=== PATIENT | female | born 1985 | race American Indian/Alaskan Native ===

== ENCOUNTER 2021-12-31 08:54 | Day surgery (SDC) | payer BC ==
--- NOTE | 2021-12-30 19:38 | History and Physical Report ---
History of Present Illness Date of examination: 12/31/21 Chief complaint: 36-year-old with abdominal pain and history of documented endometriosis admitted for operative laparoscopy with fulguration of endometriotic lesions and adhesiolysis. Medications and Allergies Allergies Allergy/AdvReac Type Severity Reaction Status Date / Time No Known Allergies Allergy Unverified 12/29/21 16:43 Home Medications Medication Instructions Recorded Confirmed Last Taken Type ALPRAZolam [Xanax TAB] 0.25 mg PO BID PRN 12/29/21 12/29/21 Unknown History Dextroamphetamine/Amphetamine 20 mg PO DAILY 12/29/21 12/29/21 Unknown History [Adderall] Hyoscyamine Sulfate 0.125 mg PO DAILY PRN 12/29/21 12/29/21 Unknown History Levothyroxine Sodium [Synthroid] 137 mcg PO DAILY 12/29/21 12/29/21 Unknown History Liothyronine Sodium [Cytomel] 5 mcg PO DAILY 12/29/21 12/29/21 Unknown History Norethindrone AC-Eth Estradiol 1 tab PO DAILY 12/29/21 12/29/21 Unknown History Omeprazole Magnesium [PriLOSEC Otc] 40 mg PO QDAY 12/29/21 12/29/21 Unknown History Ondansetron (Nf) [Zofran TAB] 8 mg PO Q8HR PRN 12/29/21 12/29/21 Unknown History Active Meds: Active Medications Acetaminophen (Acetaminophen 500 Mg Tab) 1,000 mg PO PREOP ANDRESSA Stop: 12/31/21 20:00 Celecoxib (Celecoxib 200 Mg Cap) 200 mg PO PREOP NR Stop: 12/31/21 20:00 Gabapentin (Gabapentin 300 Mg Cap) 300 mg PO PREOP NR Stop: 12/31/21 20:00 Lactated Ringer's (Lactated Ringers) 1,000 mls @ 100 mls/hr IV DIRECT ANDRESSA Stop: 12/31/21 23:59 Midazolam HCl (Midazolam 2 Mg/2 Ml Inj) 2 mg IV PREOP NR Stop: 12/31/21 20:00 Scopolamine (Scopolamine Transdermal Patch 72 Hr) 1 each TD PREOP NR Stop: 12/31/21 20:00 - Physical Exam Breasts: Positive: deferred Cardiovascular: Regular rate, Normal S1 Lungs: Positive: Clear to auscultation, Normal air movement Abdomen: Positive: normal appearance, soft, normal bowel sounds Genitourinary (Female): Positive: normal external genitalia, normal perenium Vagina: Positive: normal moisture Anus/Rectum: Positive: normal perianal skin Extremities: Positive: normal Deep Tendon Reflex Grade: Normal +2 Results All other labs normal. Assessment and Plan Patient n.p.o. on-call for procedure Informed consent obtained Anesthesia notified Daron Johansen MD
[~2021-12-31 08:54] MED LIST: ACETAMINOPHEN 500 MG TAB PO SCH; CELECOXIB 200 MG CAP PO NR; GABAPENTIN 300 MG CAP PO NR; LACTATED RINGERS 1,000 ML IV SCH; MIDAZOLAM 2 MG/2 ML INJ IV NR; SCOPOLAMINE TRANSDERMAL PATCH 72 HR TD NR
[2021-12-31] MEDS ORDERED: ceFAZolin/Water 2 GM/20 ML 2 GM/20 ML SYRINGE IV ONE (09:50)
[2021-12-31] MEDS ORDERED: BUPIVACAINE/PF (0.5%) 5 MG/1 ML 30 ML VIAL INFILTRATI ONE (10:13)
[2021-12-31] MEDS ORDERED: dexAMETHasone 4 MG/ML VIAL ONE (10:23)
[2021-12-31] MEDS ORDERED: fentaNYL 100 MCG/2 ML INJ ONE (10:24)
[2021-12-31] MEDS ORDERED: BUPIVACAINE-EPINEPHRINE/PF 0.25%-1:200,000 (30 ML) VIAL INFILTRATI ONE (10:24)
--- NOTE | 2021-12-31 10:47 | Anesthesia Consultation ---
Anesthesia Consult and Med Hx Date of service: 12/31/21 - Airway Anesthetic Teeth Evaluation: Good ROM Head & Neck: Adequate Mental/Hyoid Distance: Adequate Mallampati Class: Class I Intubation Access Assessment: Good - Pre-Operative Health Status ASA Pre-Surgery Classification: ASA2 Proposed Anesthetic Plan: General Nerve Block: TAP - Pulmonary Hx Smoking: Yes (vapes) Hx Respiratory Symptoms: No - Cardiovascular System Hx Hypertension: No - Central Nervous System CVA: No Hx Psychiatric Problems: Yes (anxiety/depression) - Endocrine Hx Renal Disease: No Hx Liver Disease: No Hx Insulin Dependent Diabetes: No Hx Non-Insulin Dependent Diabetes: No Hx Hypothyroidism: Yes - Other Systems Hx Cancer: Yes (hx thyroid ca s/p surgery) Hx Obesity: Yes (BMI 35) - Additional Comments Anesthesia Medical History Comments: Hx PONV. Patient expressed desire to minimize post op opioid requirements. Consent for preop TAP block as part of multimodal pain management plan.
[2021-12-31] MEDS ORDERED: oxyCODONE /ACETAMINOPHEN 5-325MG TAB PO PRN (10:48)
[2021-12-31] MEDS ORDERED: HYDROmorphone 1 MG/1 ML INJ IV PRN (10:48)
--- NOTE | 2021-12-31 10:48 | Anesthesia Day of Surgery ---
Anesthesia Day of Surgery - Day of Surgery Patient Examined: Yes Patient H&P Reviewed: Yes Patient is NPO: Yes
[2021-12-31] MEDS ORDERED: LIDOCAINE MPF (2%) 20 MG/1 ML VIAL 5 ML ONE (11:29)
[2021-12-31] MEDS ORDERED: MIDAZOLAM 2 MG/2 ML INJ ONE (11:30)
[2021-12-31] MEDS ORDERED: propofoL 200 MG/20 ML VIAL IV ONE (11:30)
[2021-12-31] MEDS ORDERED: KETAMINE/STERILE WATER 50 MG/ML SYRINGE ONE (11:30)
[2021-12-31] MEDS ORDERED: METHYLENE BLUE 50 MG/10 ML AMP ONE (11:48)
[2021-12-31] MEDS ORDERED: SODIUM CHLORIDE 0.9% 100 ML ONE (11:48)
[2021-12-31] MEDS ORDERED: SODIUM CHLORIDE 0.9% IRR 1,500 ML BOTTLE IR ONE (12:10)
[2021-12-31] MEDS ORDERED: SODIUM CHLORIDE 0.9% 100 ML IVPB IV ONE (12:12)
[2021-12-31] MEDS ORDERED: METHYLENE BLUE 50 MG/10 ML AMP IRRIGATION ONE (12:12)
[2021-12-31] MEDS ORDERED: GLYCOPYRROLATE 0.4 MG/2 ML INJ ONE (12:19)
[2021-12-31] MEDS ORDERED: NEOSTIGMINE 10MG/10 ML INJ MDV ONE (12:19)
--- NOTE | 2021-12-31 12:53 | Operative Report ---
Operative Report Operative Report: Preoperative diagnosis: Pelvic pain with history of endometriosis Postoperative diagnosis: Same Procedure: Diagnostic laparoscopy with chromopertubation of the fallopian tube Surgeon: Dr. Erum Johansen Anesthesia: GETA Complication: None EBL: Minimal IV fluids: 1000 mL Urine output: 300 mL clear Drain: None Findings: Normal uterus ovaries and tubes bilaterally with no endometriotic lesions or [employer] pathology noted. Bilateral spillage of methylene blue into the pelvis after chromopertubation. Procedure: Patient was consented in preop holding about risks benefits possible complications as well as alternatives to the procedure. After informed consent was obtained patient was taken to the operating room. She received excellent general endotracheal anesthesia and with no complication. She was then placed in the dorsal lithotomy position, prepped and draped in a sterile fashion. A timeout was verified, a Mckinley catheter was placed atraumatically. A speculum was placed in the vaginal vault, the parametria was noted to be pink with no masses lesions or nodularity. The cervix was identified, grasped with a single- tooth tenaculum, and a uterine manipulator was positioned in the endometrial cavity atraumaticlly. Attention then turned to the abdomen. An umbilical incision was made with a scalpel, taken down to the fascia which was incised sharply atraumatically. The King trocar was then introduced into the abdomen atraumatically. Correct placement of the trocar was confirmed under direct visualization. The patient was placed in steep Trendelenburg. A second incision was made in the left lower quadrant, a 5 mm trocar was introduced atraumatically into the abdomen. An atraumatic grasper was placed in the 5 mm trocar port to allow for retraction and visualization. There was no pelvic pathology or endometriotic lesions or adhesions noted. At this time 100 mL of methylene blue was injected into the uterine manipulator to allow for complete and appropriate chromopertubation of the fallopian tubes bilaterally spillage of methylene blue into the pelvic cavity was noted from both fimbriated ends. At the completion of the procedure both trochars were removed atraumatically under direct visualization. The fascia was closed with 0 Vicryl, the skin closed with Monocryl and erma. Pressure dressings were applied at both incision sites. The uterine manipulator and speculum were removed from the cervix and the vagina respectively. The Mckinley catheter was removed. The patient was extubated and taken to the recovery area in stable condition. Her family was notified of her stable condition immediately following the completion of the procedure. There were no complications. EBL less than 50 mL. All sponge needle and instrument counts were correct x2. Daron Johansen MD
--- NOTE | 2021-12-31 13:26 | Post Anesthesia Evaluation ---
- Post Anesthesia Evaluation Patient Participated: Yes Airway Patent: Yes Stable Respiratory Function: Yes Nausea/Vomiting: No Temp > 96.8F: Yes Pain Manageable: Yes Adequeate Hydration: Yes Anesthesia Complications: No
[2021-12-31 13:46] VITALS: BP 110/62
== END 2021-12-31 14:10 | disposition home or self-care (01) ==
LOC: OR 08:54
PROVIDERS: ATTEND Obstetrics & Gynecology
DX: R10.2 Pelvic and perineal pain (principal); N80.2 Endometriosis of fallopian tube; F41.9 Anxiety disorder, unspecified; F32.9 Major depressive disorder, single episode, unspecified; E03.9 Hypothyroidism, unspecified; E66.9 Obesity, unspecified; Z68.35 Body mass index [BMI] 35.0-35.9, adult; F17.210 Nicotine dependence, cigarettes, uncomplicated; Z79.899 Other long term (current) drug therapy; Z98.890 Other specified postprocedural states
CPT/HCPCS: 36415; 49320; 58350; 64488; 84703; J0690; J1100; J1815; J2250; J2704; J2710; J3010; J3490; J7120; Q9968; 64450; J7121